=== PATIENT | female | born 1995 ===

== ENCOUNTER 2016-11-05 23:29 | Emergency (ER) | payer OTHER ==
[2016-11-05 23:55] VITALS: RESP 16; O2SAT 100
[2016-11-06] MEDS ORDERED: Sodium Chloride 0.9% 1,000 ML IV STA (00:39)
[2016-11-06 00:56] LABS: BASO # 0.1 K/uL (0.0-0.2); EOS % 0.5 % (0.0-4.0); HEMATOCRIT 33.1 % (34.0-47.0); LYMPH # 2.3 K/uL (1.0-4.3); LYMPH % 35.4 % (20.0-40.0); MEAN CELL VOLUME 85.1 fl (81.0-99.0); MEAN CORPUSCULAR HEMOGLOBIN 27.5 pg (27.0-31.0); MEAN CORPUSCULAR HGB CONC 32.3 g/dL (33.0-37.0); MEAN PLATELET VOLUME 8.7 fl (7.2-11.7); MONO # 0.7 K/uL (0.0-0.8); MONO % 10.6 % (0.0-10.0); NEUT # 3.5 K/uL (1.8-7.0); NEUT % 52.5 % (50.0-75.0); NRBC % 0.1 % (0.0-0.0); WHITE BLOOD COUNT 6.6 K/uL (4.8-10.8)
[2016-11-06 01:05] LABS: ALB/GLOB RATIO 1.4 (1.0-2.1); ALKALINE PHOSPHATASE 49 U/L (38-126); ALT/SGPT 32 U/L (9-52); AST/SGOT 31 U/L (14-36); BILIRUBIN,TOTAL 0.3 mg/dl (0.2-1.3); BLOOD UREA NITROGEN 7 mg/dl (7-17); CALCIUM 8.4 mg/dL (8.4-10.2); CARBON DIOXIDE 26 mmol/L (22-30); CHLORIDE 103 mmol/L (98-107); GFR AFRICAN-AMERICAN > 60; GLUCOSE,RANDOM 110 mg/dL (65-105); LIPASE 448 U/L (23-300); POTASSIUM 3.4 MMOL/L (3.6-5.0); SODIUM 139 mmol/l (132-148); TOTAL PROTEIN 6.9 G/DL (6.3-8.2)
[2016-11-06 01:06] LABS: RBC URINE 5 /hpf (0-3); URINE BACTERIA OCC (<OCC); URINE BILIRUBIN SMALL (NEGATIVE); URINE BLOOD SMALL (NEGATIVE); URINE COLOR AMBER (YELLOW); URINE GLUCOSE (UA) NEG (Normal); URINE KETONE TRACE mg/dL (NEGATIVE); URINE LEUKOCYTE ESTERASE NEG Leu/uL (Negative); URINE PROTEIN 100 mg/dL (NEGATIVE); URINE UROBILINOGEN 0.2-1.0 mg/dL (0.2-1.0); WBC URINE 2 /hpf (0-5)
--- NOTE | 2016-11-06 01:26 | ED PDOC ---
HPI: Abdomen Time Seen by Provider: 11/06/16 01:24 Chief Complaint (Nursing): Abdominal Pain Chief Complaint (Provider): abdominal pain History Per: Patient History/Exam Limitations: no limitations Onset/Duration Of Symptoms: Days (3) Outside of [place] travel?: No Current Symptoms Are (Timing): Still Present Context: Other (mother sick with VIRAL GI 4d prior) Location Of Pain/Discomfort: RUQ, Epigastric, LUQ Associated Symptoms: Nausea, Vomiting, Loss Of Appetite, Back Pain. denies: Fever, Chills, Chest Pain, Constipation, Urinary Symptoms Alleviating Factors: None Last Bowel Movement: Today Abnormal Vaginal Bleeding: No Past Medical History Reviewed: Historical Data, Nursing Documentation, Vital Signs Vital Signs: Last Vital Signs Temp 100.9 F H 11/06/16 01:23 Pulse 100 H 11/05/16 23:31 Resp 16 11/05/16 23:31 BP 128/80 11/05/16 23:31 Pulse Ox 100 11/06/16 01:27 - Medical History PMH: No Chronic Diseases - Family History Family History: States: No Known Family Hx - Immunization History Hx Tetanus Toxoid Vaccination: No Hx Influenza Vaccination: No Hx Pneumococcal Vaccination: No - Home Medications Home Medications: Ambulatory Orders Medication Instructions Recorded Azithromycin [Zithromax Z-Kaz] 250 mg PO DAILY #1 tab 09/08/14 Promethazine/Phenyleph/Codeine 2 tsp PO Q6 PRN #0 syr 09/08/14 [Promethazine Vc W/ Codeine 120 ml] Amoxicillin/Clavulanate [Augmentin 1 tab PO BID #14 tab 06/05/15 875 MG-125 MG] Ibuprofen 400 mg PO Q6 #20 tablet 06/05/15 Prednisone 20 mg PO DAILY #4 tablet 06/05/15 - Allergies Allergies/Adverse Reactions: Allergies Allergy/AdvReac Type Severity Reaction Status Date / Time No Known Allergies Allergy Verified 09/08/14 00:13 Review of Systems ROS Statement: Except As Marked, All Systems Reviewed And Found Negative Constitutional: Positive for: Fever Cardiovascular: Negative for: Chest Pain, Palpitations Gastrointestinal: Positive for: Nausea, Vomiting, Abdominal Pain. Negative for : Diarrhea, Constipation Physical Exam - Reviewed Nursing Documentation Reviewed: Yes Vital Signs Reviewed: Yes - Physical Exam Appears: Positive for: Non-toxic, No Acute Distress Skin: Positive for: Normal Color, Warm, DRY Cardiovascular/Chest: Positive for: Regular Rate, Rhythm Respiratory: Positive for: CNT, Normal Breath Sounds Gastrointestinal/Abdominal: Positive for: Bowel Sounds, Soft, Tenderness (RUQ and murphys sign ) Back: Positive for: Normal Inspection. Negative for: L CVA Tenderness, R CVA Tenderness Extremity: Positive for: Normal ROM Neurologic/Psych: Positive for: Alert, Oriented - Laboratory Results Result Diagrams: 11/06/16 00:54 11/06/16 00:54 - ECG O2 Sat by Pulse Oximetry: 100 - Progress ED Course And Treament: impresoisn : gallstones US , cBC/CMP/fluids, torodlo UA Medical Decision Making Medical Decision Making: PT without evidence of gallstones at this time, however does have mildly elevated lipase. pt pain improved in ED and doesn't require further ER intervention at this time. advised to have pmd f/u and return if with sever abd pain . VS stable and well appearing Disposition - Clinical Impression Clinical Impression: Abdominal pain - Patient ED Disposition Is Patient to be Admitted: No Counseled Patient/Family Regarding: Studies Performed, Diagnosis, Need For Followup - Disposition Referrals: [facility] [Outside] [facility] [Outside] Disposition: Routine/Home Disposition Time: 02:45 Condition: IMPROVED Instructions: Cholecystitis (ED), Gallstones (ED) Forms: [employer] (Sinhala), [facility] ED School/Work Excuse
--- NOTE | 2016-11-06 02:28 | US ---
EXAM: US Abdomen Limited, Right Upper Quadrant CLINICAL HISTORY: 21 years old, female; Pain; Abdominal pain; Generalized; Additional info: (+) barrios sign TECHNIQUE: Real-time ultrasound of the right upper quadrant with image documentation. COMPARISON: No relevant prior studies available. FINDINGS: Liver: Normal echogenicity. No mass. No intrahepatic bile duct dilatation. Gallbladder: No gallstones. No wall thickening. No pericholecystic fluid. No sonographic Barrios's sign. Common bile duct: No dilatation. No stones. Pancreas: Unremarkable as visualized. Right kidney: Normal echogenicity. No hydronephrosis. IMPRESSION: 1.No acute findings. 2.Non-acute findings are described above.
[2016-11-06 02:50] VITALS: BP 129/77; PULSE 92; TEMP 98.4
--- NOTE | 2016-11-07 18:18 | CARD ---
APPROVED REPORT EKG Measurement Heart [id number] <Conclusion> Normal sinus rhythm Normal ECG
== END 2016-11-06 03:05 | disposition home or self-care (01) ==
LOC: H.ER 23:29
DX: K80.20 Calculus of gallbladder without cholecystitis without obstruction (principal)
CPT/HCPCS: 76705; 80053; 81003; 81025; 83690; 85025; 93005; 96361; 96374; 96375; 99284; J2405; J7040

== ENCOUNTER 2016-11-09 20:59 | Emergency (ER) | payer OTHER ==
[2016-11-09] MEDS ORDERED: Sodium Chloride 0.9% 1,000 ML IV STA (21:54)
[2016-11-09] MEDS ORDERED: Iohexol 240 (50 ml) PO STA (21:55)
[2016-11-09] MEDS ORDERED: Morphine 4 MG/ML VIAL ONE (22:09)
[2016-11-09 22:55] LABS: BASO # 0.1 K/uL (0.0-0.2); BASO % 1.1 % (0.0-2.0); EOS % 0.4 % (0.0-4.0); HEMATOCRIT 37.3 % (34.0-47.0); LYMPH # 1.3 K/uL (1.0-4.3); LYMPH % 29.4 % (20.0-40.0); MEAN CELL VOLUME 84.6 fl (81.0-99.0); MEAN CORPUSCULAR HEMOGLOBIN 28.2 pg (27.0-31.0); MEAN CORPUSCULAR HGB CONC 33.3 g/dL (33.0-37.0); MEAN PLATELET VOLUME 9.5 fl (7.2-11.7); MONO # 0.2 K/uL (0.0-0.8); MONO % 5.2 % (0.0-10.0); NEUT # 2.9 K/uL (1.8-7.0); NEUT % 63.9 % (50.0-75.0); NRBC % 0.1 % (0.0-0.0); RED CELL DISTRIBUTION WIDTH 17.7 % (11.5-14.5); WHITE BLOOD COUNT 4.5 K/uL (4.8-10.8)
[2016-11-09 23:05] LABS: ALB/GLOB RATIO 1.4 (1.0-2.1); ALKALINE PHOSPHATASE 66 U/L (38-126); ALT/SGPT 31 U/L (9-52); AST/SGOT 52 U/L (14-36); BILIRUBIN,TOTAL 0.4 mg/dl (0.2-1.3); BLOOD UREA NITROGEN 9 mg/dl (7-17); CALCIUM 8.9 mg/dL (8.4-10.2); CARBON DIOXIDE 24 mmol/L (22-30); CHLORIDE 107 mmol/L (98-107); GFR AFRICAN-AMERICAN > 60; GLUCOSE,RANDOM 136 mg/dL (65-105); LIPASE 481 U/L (23-300); SODIUM 146 mmol/l (132-148); TOTAL PROTEIN 8.1 G/DL (6.3-8.2)
[2016-11-09] MEDS ORDERED: Iohexol 240 (50 ml) ONE (23:08)
[2016-11-09 23:12] LABS: POTASSIUM 4.5 MMOL/L (3.6-5.0)
[2016-11-09] MEDS ORDERED: Alum-Mag Hydrox-Simethicone Susp (30 mL) PO STA (23:39)
--- NOTE | 2016-11-10 01:30 | ED PDOC ---
HPI: Abdomen Time Seen by Provider: 11/09/16 21:07 Chief Complaint (Nursing): Abdominal Pain Chief Complaint (Provider): Abdominal pain, N/V/D History Per: Patient History/Exam Limitations: no limitations Onset/Duration Of Symptoms: Days Outside of [place] travel?: No Additional Complaint(s): Pt reports watery diarrhea without blood or mucous x 3 weeks. Pt states that for 2 weeks she has been having upper abdominal pain. Pt states 5 days ago she began having N/V. Pt denies fever/chills. PT was seen in ER 4 days ago and was diagnosed with gallbladder stones however she does not have follow-up appointment with GI until 11/20/16. Pt states she feels worse today. Past Medical History Reviewed: Historical Data, Nursing Documentation, Vital Signs Vital Signs: Last Vital Signs Temp 96.5 F L 11/09/16 21:02 Pulse 113 H 11/09/16 21:02 Resp 16 11/09/16 21:02 BP 118/82 11/09/16 21:02 Pulse Ox 98 11/10/16 03:48 - Medical History PMH: Gall Bladder Disease - Surgical History Surgical History: No Surg Hx - Family History Family History: States: No Known Family Hx - Social History Current smoker - smoking cessation education provided: No - Immunization History Hx Tetanus Toxoid Vaccination: No Hx Influenza Vaccination: No Hx Pneumococcal Vaccination: No - Home Medications Home Medications: Ambulatory Orders Medication Instructions Recorded Azithromycin [Zithromax Z-Kaz] 250 mg PO DAILY #1 tab 09/08/14 Promethazine/Phenyleph/Codeine 2 tsp PO Q6 PRN #0 syr 09/08/14 [Promethazine Vc W/ Codeine 120 ml] Amoxicillin/Clavulanate [Augmentin 1 tab PO BID #14 tab 06/05/15 875 MG-125 MG] Ibuprofen 400 mg PO Q6 #20 tablet 06/05/15 Prednisone 20 mg PO DAILY #4 tablet 06/05/15 oxyCODONE/Acetaminophen [Percocet 1 ea PO Q6H PRN #15 tab 11/10/16 5/325 mg Tab] - Allergies Allergies/Adverse Reactions: Allergies Allergy/AdvReac Type Severity Reaction Status Date / Time No Known Allergies Allergy Verified 09/08/14 00:13 Review of Systems ROS Statement: Except As Marked, All Systems Reviewed And Found Negative Constitutional: Negative for: Fever, Chills, Sweats Gastrointestinal: Positive for: Nausea, Vomiting, Abdominal Pain, Diarrhea. Negative for: Melena Physical Exam - Reviewed Nursing Documentation Reviewed: Yes Vital Signs Reviewed: Yes - Physical Exam Appears: Positive for: Well, Non-toxic, No Acute Distress Head Exam: Positive for: ATRAUMATIC, NORMAL INSPECTION, NORMOCEPHALIC Skin: Positive for: Normal Color, Warm, DRY Eye Exam: Positive for: Normal appearance ENT: Positive for: Normal ENT Inspection Neck: Positive for: Normal, Painless ROM Cardiovascular/Chest: Positive for: Regular Rate, Rhythm Respiratory: Positive for: Normal Breath Sounds. Negative for: Accessory Muscle Use, Respiratory Distress Gastrointestinal/Abdominal: Positive for: Bowel Sounds, Soft, Tenderness ( Epigastric and RLQ). Negative for: Normal Exam Back: Positive for: Normal Inspection Extremity: Positive for: Normal ROM Neurologic/Psych: Positive for: Alert, Oriented - Laboratory Results Result Diagrams: 11/09/16 22:40 11/09/16 22:40 - ECG O2 Sat by Pulse Oximetry: 98 Medical Decision Making Medical Decision Making: No acute findings on CT. Disposition - Clinical Impression Clinical Impression: Abdominal pain - Patient ED Disposition Is Patient to be Admitted: No Counseled Patient/Family Regarding: Diagnosis, Need For Followup - Disposition Disposition: Routine/Home Disposition Time: 03:50 Condition: GOOD Prescriptions: oxyCODONE/Acetaminophen [Percocet 5/325 mg Tab] 1 ea PO Q6H PRN #15 tab PRN Reason: Pain, Severe (8-10) Instructions: Abdominal Pain (ED)
--- NOTE | 2016-11-10 02:02 | CT ---
EXAM: CT Abdomen and Pelvis With Intravenous Contrast CLINICAL HISTORY: 21 years old, female; Pain; Abdominal pain; Generalized; Additional info: Abdominal pain, diarrhea x 3 days TECHNIQUE: Axial computed tomography images of the abdomen and pelvis with intravenous contrast. This CT exam was performed using one or more of the following dose reduction techniques: automated exposure control, adjustment of the mA and/or kV according to patient size, and/or use of iterative reconstruction technique. Coronal and sagittal reformatted images were created and reviewed. CONTRAST: 95 mL of omni 300 administered intravenously. COMPARISON: US - ABDOMEN LIMITED (GB INCLUDED) 11/06/2016 2:05:04 AM FINDINGS: Lower thorax: Minimal atelectasis/scarring. ABDOMEN: Liver: Unremarkable. No mass. Gallbladder and bile ducts: No calcified stones. No ductal dilation. Pancreas: No ductal dilation. No mass. Spleen: No splenomegaly. Adrenals: No mass. Kidneys and ureters: No mass. No hydronephrosis. Stomach and bowel: Mild mural thickening vs underdistention of transverse, descending, sigmoid colon. No associated inflammatory stranding. No obstruction. Appendix: Normal caliber. No inflammation. PELVIS: Bladder: Unremarkable. Reproductive: 2.3 x 1.6 x 2.4 cm faint peripherally enhancing hypodensity with crenulated margins within RIGHT ovary. ABDOMEN and PELVIS: Intraperitoneal space: Trace free fluid within pelvis. No free air. Bones/joints: No acute fracture. Soft tissues: Unremarkable. Vasculature: Unremarkable. No aneurysm. Lymph nodes: No pathologically enlarged lymph nodes. IMPRESSION: 1. Probable involuting or ruptured RIGHT ovarian follicle/cyst. 2. Mild colitis vs underdistention. Favor underdistention. Clinical correlation is needed. 3. Incidental/non-acute findings are described above.
[2016-11-10 04:00] VITALS: BP 123/63; PULSE 102; RESP 17; TEMP 98.1; O2SAT 99
== END 2016-11-10 04:41 | disposition home or self-care (01) ==
LOC: H.ER 20:59
DX: R11.2 Nausea with vomiting, unspecified (principal); R19.7 Diarrhea, unspecified
CPT/HCPCS: 74177; 80053; 81025; 83690; 85025; 99283; J2270; J2405; J7040; Q9966

== ENCOUNTER 2016-11-14 00:49 | Emergency (ER) | payer OTHER ==
[2016-11-14 01:09] VITALS: BP 134/89; PULSE 106; RESP 19; TEMP 98.9; O2SAT 99
[2016-11-14] MEDS ORDERED: Sodium Chloride 0.9% 1,000 ML IV STA (01:55)
[2016-11-14 02:18] LABS: BASO % 0.8 % (0.0-2.0); EOS % 0.5 % (0.0-4.0); HEMATOCRIT 37.5 % (34.0-47.0); LYMPH # 2.6 K/uL (1.0-4.3); MEAN CELL VOLUME 85.4 fl (81.0-99.0); MEAN CORPUSCULAR HEMOGLOBIN 27.8 pg (27.0-31.0); MEAN CORPUSCULAR HGB CONC 32.5 g/dL (33.0-37.0); MEAN PLATELET VOLUME 8.5 fl (7.2-11.7); MONO # 0.5 K/uL (0.0-0.8); MONO % 9.5 % (0.0-10.0); NEUT # 2.3 K/uL (1.8-7.0); NEUT % 42.2 % (50.0-75.0); NRBC % 0.1 % (0.0-0.0); RED CELL DISTRIBUTION WIDTH 17.4 % (11.5-14.5); WHITE BLOOD COUNT 5.5 K/uL (4.8-10.8)
[2016-11-14 02:34] LABS: ALB/GLOB RATIO 1.5 (1.0-2.1); ALKALINE PHOSPHATASE 69 U/L (38-126); ALT/SGPT 38 U/L (9-52); AST/SGOT 43 U/L (14-36); BILIRUBIN,TOTAL 0.3 mg/dl (0.2-1.3); BLOOD UREA NITROGEN 8 mg/dl (7-17); CALCIUM 9.5 mg/dL (8.4-10.2); CARBON DIOXIDE 24 mmol/L (22-30); CHLORIDE 106 mmol/L (98-107); GFR AFRICAN-AMERICAN > 60; GLUCOSE,RANDOM 122 mg/dL (65-105); LIPASE 644 U/L (23-300); POTASSIUM 4.3 MMOL/L (3.6-5.0); SODIUM 144 mmol/l (132-148)
--- NOTE | 2016-11-14 03:02 | ED PDOC ---
HPI: Abdomen Time Seen by Provider: 11/14/16 01:15 Chief Complaint (Nursing): Abdominal Pain Chief Complaint (Provider): abdominal pain History Per: Patient History/Exam Limitations: no limitations Onset/Duration Of Symptoms: Days (10 days) Current Symptoms Are (Timing): Still Present Location Of Pain/Discomfort: RUQ, Epigastric, LUQ Quality Of Discomfort: Sharp Associated Symptoms: Nausea, Vomiting, Diarrhea Additional History Per: Patient Additional Complaint(s): 21 y/o female presents for eval of persistent upper abdominal pain x 10 days. Associated vomiting, and nonbloody, nonmucoid diarrhea. Patient states she was seen in ED in 11/05, and 11/09 for same without improvement. Patient has appt to see digital media planner 10/20/16. Denies fever, chest pain, shortness of breath, palpitations, dysuria, hematuria, recent travel, sick contacts. Past Medical History Reviewed: Historical Data, Nursing Documentation, Vital Signs Vital Signs: Last Vital Signs Temp 98.9 F 11/14/16 01:06 Pulse 106 H 11/14/16 01:06 Resp 19 11/14/16 01:06 BP 134/89 11/14/16 01:06 Pulse Ox 99 11/14/16 03:39 - Medical History PMH: No Chronic Diseases - Surgical History Surgical History: No Surg Hx - Family History Family History: States: Unknown Family Hx - Living Arrangements Living Arrangements: With Family - Immunization History Hx Tetanus Toxoid Vaccination: No Hx Influenza Vaccination: No Hx Pneumococcal Vaccination: No - Home Medications Home Medications: Ambulatory Orders Medication Instructions Recorded Azithromycin [Zithromax Z-Kaz] 250 mg PO DAILY #1 tab 09/08/14 Promethazine/Phenyleph/Codeine 2 tsp PO Q6 PRN #0 syr 09/08/14 [Promethazine Vc W/ Codeine 120 ml] Amoxicillin/Clavulanate [Augmentin 1 tab PO BID #14 tab 06/05/15 875 MG-125 MG] Ibuprofen 400 mg PO Q6 #20 tablet 06/05/15 Prednisone 20 mg PO DAILY #4 tablet 06/05/15 oxyCODONE/Acetaminophen [Percocet 1 ea PO Q6H PRN #15 tab 11/10/16 5/325 mg Tab] Dicyclomine [Bentyl] 20 mg PO TID PRN #21 tab 11/14/16 Famotidine [Pepcid] 20 mg PO BID #30 tab 11/14/16 Ondansetron ODT [Zofran ODT] 4 mg PO Q8 PRN #10 odt 11/14/16 - Allergies Allergies/Adverse Reactions: Allergies Allergy/AdvReac Type Severity Reaction Status Date / Time No Known Allergies Allergy Verified 11/14/16 01:06 Review of Systems ROS Statement: Except As Marked, All Systems Reviewed And Found Negative Gastrointestinal: Positive for: Nausea, Vomiting, Abdominal Pain, Diarrhea Physical Exam - Reviewed Nursing Documentation Reviewed: Yes Vital Signs Reviewed: Yes - Physical Exam Appears: Positive for: Well, Non-toxic, No Acute Distress Head Exam: Positive for: ATRAUMATIC, NORMAL INSPECTION, NORMOCEPHALIC Skin: Positive for: Normal Color Eye Exam: Positive for: Normal appearance ENT: Positive for: Normal ENT Inspection Cardiovascular/Chest: Positive for: Regular Rate, Rhythm Respiratory: Positive for: Normal Breath Sounds Gastrointestinal/Abdominal: Positive for: Bowel Sounds, Soft, Tenderness ( epigastric, ruq (mild), luq (mild). Negative Barrios's. Negative McBurney) Back: Positive for: Normal Inspection Extremity: Positive for: Normal ROM Neurologic/Psych: Positive for: Alert, Oriented - Laboratory Results Result Diagrams: 11/14/16 02:00 11/14/16 02:00 - ECG O2 Sat by Pulse Oximetry: 99 - Progress ED Course And Treament: labs, IV fluids, IV pepcid, IV zofran, IV toradol On re-eval, patient states she is feeling better. Tolerated PO in ED. Patient educated on findings, offered admission for intractable abdominal pain, elevated lipase; patient states she would like to go home with new prescriptions and follow up at her scheduled GI appointment next week. Rx Pepcid, Zofran, Bentyl provided. Advised BRAT diet. FLuids. Return to ED for worsening/concerning symptoms. Disposition - Clinical Impression Clinical Impression: Abdominal pain, Elevated lipase, Vomiting and diarrhea - Patient ED Disposition Is Patient to be Admitted: No Counseled Patient/Family Regarding: Studies Performed, Diagnosis, Need For Followup, Rx Given - Disposition Disposition: Routine/Home Disposition Time: 03:51 Condition: IMPROVED Additional Instructions: Follow up with specialist at scheduled appointment. Take medications as directed. Drink plenty of fluids. BRAT diet. Take probiotics. Return to ED for worsening/concerning symptoms. Prescriptions: Dicyclomine [Bentyl] 20 mg PO TID PRN #21 tab PRN Reason: Pain, Mild (1-3) Famotidine [Pepcid] 20 mg PO BID #30 tab Ondansetron ODT [Zofran ODT] 4 mg PO Q8 PRN #10 odt PRN Reason: Nausea/Vomiting Instructions: Abdominal Pain (ED)
== END 2016-11-14 04:09 | disposition home or self-care (01) ==
LOC: H.ER 00:49
DX: R10.12 Left upper quadrant pain (principal); R74.8 Abnormal levels of other serum enzymes
CPT/HCPCS: 80053; 83690; 85025; 96374; 99283; J1885; J2405; J7040

== ENCOUNTER 2017-05-17 21:14 | Emergency (ER) | payer MEDICAID, SELFPAY ==
[2017-05-17 21:31] VITALS: BMI 27.4
[2017-05-17 21:34] VITALS: BP 129/90; PULSE 121; RESP 16; TEMP 98.4; O2SAT 97
[2017-05-18] MEDS ORDERED: guaiFENesin 200 mg/10 ml Syrup UD PO ONE (02:33)
[2017-05-18] MEDS ORDERED: guaiFENesin 100 mg/5 ml Syrup UD ONE (02:49)
--- NOTE | 2017-05-18 05:47 | ED PDOC ---
HPI: CCC, URI, Sore Throat Time Seen by Provider: 05/18/17 01:32 Chief Complaint (Nursing): ENT Problem Chief Complaint (Provider): ENT Problem History Per: Patient History/Exam Limitations: no limitations Additional Complaint(s): Patient reports sore throat and dry cough. Also reports wrist pain to dorsal aspect of her wrist x 4 days. Notes that sibling had similar symptoms. Otherwise : (-) SOB, (-) chest pain, (-) N/V/D, (-) abdominal pain, (-) flank pain, (-) urinary symptoms, (-) recent travel, (-) fever. Past Medical History Reviewed: Historical Data, Nursing Documentation, Vital Signs Vital Signs: Last Vital Signs Temp 98.4 F 05/17/17 21:32 Pulse 121 H 05/17/17 21:32 Resp 16 05/17/17 21:32 BP 129/90 05/17/17 21:32 Pulse Ox 97 05/18/17 05:54 - Medical History PMH: No Chronic Diseases - Surgical History Surgical History: No Surg Hx - Family History Family History: States: Unknown Family Hx - Social History Current smoker - smoking cessation education provided: No Alcohol: None Drugs: Denies - Immunization History Hx Tetanus Toxoid Vaccination: No Hx Influenza Vaccination: No Hx Pneumococcal Vaccination: No - Home Medications Home Medications: Ambulatory Orders Medication Instructions Recorded Azithromycin [Zithromax Z-Kaz] 250 mg PO DAILY #1 tab 09/08/14 Promethazine/Phenyleph/Codeine 2 tsp PO Q6 PRN #0 syr 09/08/14 [Promethazine Vc W/ Codeine 120 ml] Amoxicillin/Clavulanate [Augmentin 1 tab PO BID #14 tab 06/05/15 875 MG-125 MG] Ibuprofen 400 mg PO Q6 #20 tablet 06/05/15 Prednisone 20 mg PO DAILY #4 tablet 06/05/15 oxyCODONE/Acetaminophen [Percocet 1 ea PO Q6H PRN #15 tab 11/10/16 5/325 mg Tab] Dicyclomine [Bentyl] 20 mg PO TID PRN #21 tab 11/14/16 Famotidine [Pepcid] 20 mg PO BID #30 tab 11/14/16 Ondansetron ODT [Zofran ODT] 4 mg PO Q8 PRN #10 odt 11/14/16 Guaifenesin 400 mg PO QID #20 tablet 05/18/17 Ibuprofen [Motrin Tab] 600 mg PO QID PRN #20 tab 05/18/17 - Allergies Allergies/Adverse Reactions: Allergies Allergy/AdvReac Type Severity Reaction Status Date / Time No Known Allergies Allergy Verified 05/17/17 21:31 Review of Systems ROS Statement: Except As Marked, All Systems Reviewed And Found Negative (As per HPI, otherwise negative) Constitutional: Negative for: Fever ENT: Positive for: Throat Swelling (sore throat) Cardiovascular: Negative for: Chest Pain Respiratory: Positive for: Cough (Dry cough). Negative for: Shortness of Breath , Hemoptysis Gastrointestinal: Negative for: Nausea, Vomiting, Diarrhea, Melena, Hematochezia Musculoskeletal: Positive for: Other (wrist pain to dorsal aspect of her wrist ) Physical Exam - Reviewed Nursing Documentation Reviewed: Yes Vital Signs Reviewed: Yes - Physical Exam Comments: GENERAL APPEARANCE: Patient is awake, alert, oriented x 3, in no acute distress. SKIN: Warm, dry; (-) cyanosis, (-) rash. EYES: (-) conjunctival pallor, (-) scleral icterus, (-) conjunctival hemorrhage. ENMT: Mucous membranes moist. TMs: (-) erythema. Airway patent: (-) stridor. Pharynx: (-) erythema, (-) exudate. NECK: (-) tenderness, (-) stiffness, (-) meningismus, (-) lymphadenopathy. CHEST AND RESPIRATORY: (-) accessory muscle use. Lungs: (-) rales, (-) rhonchi, (-) wheezes, (-) rub; breath sounds equal bilaterally. HEART AND CARDIOVASCULAR: (-) irregularity; (-) murmur, (-) gallop, (-) rub. ABDOMEN AND GI: Soft; (-) tenderness, (-) guarding; (-) organomegaly; (-) mass ; (-) CVA tenderness. EXTREMITIES: (-) deformity; (-) cellulitis, (-) lymphangitis; (-) subungual hemorrhage; (-) edema, (-) tenderness, (-) swelling, (+) pain reproducible to the dorsal aspect of right wrist with flexion. NEURO AND PSYCH: Mental status as above; (-) focal findings. - ECG O2 Sat by Pulse Oximetry: 97 (RA) Pulse Ox Interpretation: Normal Medical Decision Making Medical Decision Making: Time: 02:34 Plan: Robitussin 400mg PO Ibuprofen 600mg PO --Diagnosed with viral illness, wrist pain possibly due to carpel tunnel d/w the patient --Premade cock up splint applied to the R wrist. Time: 03:00 Advised to follow up with primary care physician in 1-2 days without fail. Advised to take medication as prescribed. Return to the emergency room at any time for any new or worsening symptoms. Patient states she fully agrees with and understands discharge instructions. States that she agrees with the plan and disposition. Verbalized and repeated discharge instructions and plan. I have given the patient opportunity to ask any additional questions. Scribe Attestation: Documented by Melissa Michel acting as a scribe for ANGELY Luciano PA-C. Scribe Attestation: All medical record entries made by the Scribe were at my direction and personally dictated by me. I have reviewed the chart and agree that the record accurately reflects my personal performance of the history, physical exam, medical decision making, and the department course for this patient. I have also personally directed, reviewed, and agree with the discharge instructions and disposition. Disposition - Clinical Impression Clinical Impression: Viral illness, Right wrist pain - Patient ED Disposition Is Patient to be Admitted: No Counseled Patient/Family Regarding: Diagnosis, Need For Followup, Rx Given - Disposition Disposition: Routine/Home Disposition Time: 02:15 Condition: STABLE Additional Instructions: Thank you for letting us take care of you today. You were treated for viral illness, R wrist pain, consider carpal tunnel syndrome. The emergency medical care you received today was directed at your acute symptoms. Rest, ice and elevate wrist, wear splint as advised. If you were prescribed any medication, please fill it and take as directed. It may take several days for your symptoms to resolve. Return to the Emergency Department if your symptoms worsen, do not improve, or if you have any other problems. Please contact your doctor in 2 days for re-evaluation and follow up. Bring any paperwork you were given at discharge with you along with any medications you are taking to your follow up visit. Our treatment cannot replace ongoing medical care by a primary care provider (PCP) outside of the emergency department. Thank you for allowing the [facility] team to be part of your care today. 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
== END 2017-05-18 02:56 | disposition home or self-care (01) ==
LOC: H.ER 21:14
DX: B34.9 Viral infection, unspecified (principal); M25.531 Pain in right wrist

== ENCOUNTER 2017-06-16 12:27 | Emergency (ER) | payer MEDICAID, SELFPAY ==
[2017-06-16 12:27] VITALS: BMI 27.4
[2017-06-16 12:44] VITALS: BP 127/83; PULSE 88; RESP 16; TEMP 98; O2SAT 99
--- NOTE | 2017-06-16 13:47 | ED PDOC ---
Lower Extremity Pain/Injury Time Seen by Provider: 06/16/17 13:07 Chief Complaint (Nursing): Lower Extremity Problem/Injury Chief Complaint (Provider): Lower Extremity Problem History Per: Patient History/Exam Limitations: no limitations Onset/Duration Of Symptoms: Days (x3) Current Symptoms Are (Timing): Still Present Additional Complaint(s): 21 year old female presents to ED with complaints of atraumatic right foot pain x3 days and denies having any past medical history. Patient describes the pain as "feeling like a metal ball was dropped on the foot". Notes pain with bearing weight on right foot. Localizes pain to the dorsal, lateral, and plantar aspects of foot as well as to the toes. Notes that she has experienced this pain before but confirms it is worse now. Of note, patient states she used to play sports and saw a finance specialist for swollen tendons but never followed up. PCP: Melina Bustamante Past Medical History Reviewed: Historical Data, Nursing Documentation, Vital Signs Vital Signs: Last Vital Signs Temp 98.0 F 06/16/17 12:40 Pulse 88 06/16/17 12:40 Resp 16 06/16/17 12:40 BP 127/83 06/16/17 12:40 Pulse Ox 99 06/16/17 12:40 - Medical History PMH: No Chronic Diseases Denies: Diabetes - Family History Family History: States: Unknown Family Hx - Social History Alcohol: None Drugs: Denies - Immunization History Hx Tetanus Toxoid Vaccination: No Hx Influenza Vaccination: No Hx Pneumococcal Vaccination: No - Home Medications Home Medications: Ambulatory Orders Medication Instructions Recorded Azithromycin [Zithromax Z-Kaz] 250 mg PO DAILY #1 tab 09/08/14 Promethazine/Phenyleph/Codeine 2 tsp PO Q6 PRN #0 syr 09/08/14 [Promethazine Vc W/ Codeine 120 ml] Amoxicillin/Clavulanate [Augmentin 1 tab PO BID #14 tab 06/05/15 875 MG-125 MG] Ibuprofen 400 mg PO Q6 #20 tablet 06/05/15 Prednisone 20 mg PO DAILY #4 tablet 06/05/15 oxyCODONE/Acetaminophen [Percocet 1 ea PO Q6H PRN #15 tab 11/10/16 5/325 mg Tab] Dicyclomine [Bentyl] 20 mg PO TID PRN #21 tab 11/14/16 Famotidine [Pepcid] 20 mg PO BID #30 tab 11/14/16 Ondansetron ODT [Zofran ODT] 4 mg PO Q8 PRN #10 odt 11/14/16 Guaifenesin 400 mg PO QID #20 tablet 05/18/17 Ibuprofen [Motrin Tab] 600 mg PO QID PRN #20 tab 05/18/17 - Allergies Allergies/Adverse Reactions: Allergies Allergy/AdvReac Type Severity Reaction Status Date / Time No Known Allergies Allergy Verified 06/16/17 12:40 Review of Systems ROS Statement: Except As Marked, All Systems Reviewed And Found Negative Musculoskeletal: Positive for: Foot Pain (right foot pain) Physical Exam - Reviewed Nursing Documentation Reviewed: Yes Vital Signs Reviewed: Yes - Physical Exam Appears: Positive for: Non-toxic, No Acute Distress Extremity: Positive for: Normal ROM (Full ROM both actively and passively), Tenderness (navicular and medial calcaneal tenderness), Capillary Refill (<2 seconds), Other (right foot strenght 5/5). Negative for: Deformity Neurologic/Psych: Positive for: Alert, Oriented. Negative for: Motor/Sensory Deficits - ECG O2 Sat by Pulse Oximetry: 99 (RA) Pulse Ox Interpretation: Normal Medical Decision Making Medical Decision Makin Initial impression: r/o stress frature Initial plan: * XR FOOT RT 1410 XR: no fracture, no dislocation, no acute findings Scribe Attestation: Documented by Belem Villarreal, acting as a scribe for Oneal hCapman PA-C. Provider Scribe Attestation: All medical record entries made by the Scribe were at my direction and personally dictated by me. I have reviewed the chart and agree that the record accurately reflects my personal performance of the history, physical exam, medical decision making, and the department course for this patient. I have also personally directed, reviewed, and agree with the discharge instructions and disposition. Disposition - Clinical Impression Clinical Impression: Plantar fascia syndrome - Disposition Referrals: Reese Santiago MD [Staff Provider] - Disposition Time: 14:33 Condition: GOOD Additional Instructions: consider more supportive footwear Instructions: Heel Pain (Caused by Plantar Fasciitis) (DC), Plantar Fasciitis Exercises Forms: [employer] (Belizean)
--- NOTE | 2017-06-16 15:36 | RAD ---
PROCEDURE: Right Foot Radiographs. HISTORY: non traumatic pain COMPARISON: None. FINDINGS: BONES: Normal. No fracture. JOINTS: Normal. SOFT TISSUES: Normal. OTHER FINDINGS: None. IMPRESSION: Normal right foot radiographs.
== END 2017-06-16 14:39 | disposition home or self-care (01) ==
LOC: H.ER 12:27
DX: M72.2 Plantar fascial fibromatosis (principal)

== ENCOUNTER 2017-09-04 22:00 | Emergency (ER) | payer MEDICAID ==
[2017-09-04 22:00] VITALS: BMI 27.4
[2017-09-04] MEDS ORDERED: Albuterol-Ipratrop 3 mg / 0.5 (3 ml) UD IH STA (23:02)
[2017-09-04] MEDS ORDERED: guaiFENesin 100 mg/5 ml Syrup UD PO ONE (23:02)
--- NOTE | 2017-09-04 23:14 | ED PDOC ---
History of Present Illness History of Present Illness: 21 yo F with no PMH, complains of productive cough, sore throat, congestion and associated with chest pain and upper back pain with coughing. Otherwise: (-) fever, (-) chills, (-) chest pain, (-) dyspnea, (-) hemoptysis, (-) smoke, (-) travel, (-) recent prolonged immobility. HPI: Influenza Time Seen by Provider: 09/04/17 22:26 Chief Complaint: Cough, Cold, Congestion History Per: Patient Exam Limitations: no limitations Past Medical History Vital Signs: Last Vital Signs Temp 98.3 F 09/04/17 22:09 Pulse 104 H 09/04/17 22:09 Resp 16 09/04/17 22:09 BP 139/94 H 09/04/17 22:09 Pulse Ox 99 09/04/17 22:09 - Medical History PMH: Denies: Diabetes - Family History Family History: States: Unknown Family Hx - Immunization History Hx Tetanus Toxoid Vaccination: No Hx Influenza Vaccination: No Hx Pneumococcal Vaccination: No - Home Medications Home Medications: Ambulatory Orders Medication Instructions Recorded Azithromycin [Zithromax Z-Kaz] 250 mg PO DAILY #1 tab 09/08/14 Promethazine/Phenyleph/Codeine 2 tsp PO Q6 PRN #0 syr 09/08/14 [Promethazine Vc W/ Codeine 120 ml] Amoxicillin/Clavulanate [Augmentin 1 tab PO BID #14 tab 06/05/15 875 MG-125 MG] Ibuprofen 400 mg PO Q6 #20 tablet 06/05/15 Prednisone 20 mg PO DAILY #4 tablet 06/05/15 oxyCODONE/Acetaminophen [Percocet 1 ea PO Q6H PRN #15 tab 11/10/16 5/325 mg Tab] Dicyclomine [Bentyl] 20 mg PO TID PRN #21 tab 11/14/16 Famotidine [Pepcid] 20 mg PO BID #30 tab 11/14/16 Ondansetron ODT [Zofran ODT] 4 mg PO Q8 PRN #10 odt 11/14/16 Guaifenesin 400 mg PO QID #20 tablet 05/18/17 Ibuprofen [Motrin Tab] 600 mg PO QID PRN #20 tab 05/18/17 Albuterol 0.083% [Albuterol 3 ml IH Q4 #100 neb 09/04/17 Sulfate 3 Ml] Guaifenesin [Adult Tussin Chest 200 mg PO Q6H PRN #200 ml 09/04/17 Congestion] Nebulizer [Aeroeclipse II] 1 each MC DAILY #1 each 09/04/17 - Allergies Allergies/Adverse Reactions: Allergies Allergy/AdvReac Type Severity Reaction Status Date / Time No Known Allergies Allergy Verified 09/04/17 22:09 Review of Systems Constitutional: Negative for: Fever, Malaise ENT: Negative for: Nose Discharge, Throat Pain Cardiovascular: Positive for: Chest Pain (with coughing) Respiratory: Positive for: Cough. Negative for: Shortness of Breath, Wheezing Gastrointestinal: Negative for: Vomiting, Diarrhea Musculoskeletal: Positive for: Back Pain (with coughing). Negative for: Neck Pain Skin: Negative for: Rash, Lesions Physical Exam - Physical Exam Comments: GENERAL APPEARANCE: Patient is awake, alert, oriented x 3, in no acute distress. SKIN: Warm, dry; (-) cyanosis. EYES: (-) conjunctival pallor. ENMT: Mucous membranes moist. Airway patent: (-) stridor. Pharynx: (-) swelling, (-) erythema, (-) exudate. NECK: (-) tenderness, (-) stiffness, (-) lymphadenopathy. CHEST AND RESPIRATORY: (+) rhonchi to the RUL, (-) rales, (-) wheezes, (-) pleural rub; breath sounds equal bilaterally. HEART AND CARDIOVASCULAR: (-) irregularity; (-) murmur, (-) gallop. ABDOMEN AND GI: Soft; (-) tenderness. EXTREMITIES: (-) deformity; (-) edema. NEURO AND PSYCH: Mental status as above. Cranial nerves grossly intact; strength symmetric. Medical Decision Making Medical Decision Making: Impression : bronchitis, r/o pneumonia Plan : - CXR - [facility] - [facility] (-) CXR : NAD, as read by PA. On re-evaluation, patient feels much improved. On exam, lungs are clear to auscultation, (-) wheezing, (-) rhonchi, cardiac RRR. Advised to follow up with primary care physician in 1-2 days without fail. Advised to take medication as prescribed. Return to the emergency room at any time for any new or worsening symptoms. Patient states she fully agrees with and understands discharge instructions. States that she agrees with the plan and disposition. Verbalized and repeated discharge instructions and plan. I have given the patient opportunity to ask any additional questions. - ECG O2 Sat by Pulse Oximetry: 99 Disposition - Clinical Impression Clinical Impression: Acute bronchitis - Patient ED Disposition Is Patient to be Admitted: No Counseled Patient/Family Regarding: Studies Performed, Diagnosis, Need For Followup, Rx Given - Disposition Disposition: Routine/Home Disposition Time: 00:00 Condition: STABLE Additional Instructions: Thank you for letting us take care of you today. You were treated for acute bronchitis. The emergency medical care you received today was directed at your acute symptoms. If you were prescribed any medication, please fill it and take as directed. It may take several days for your symptoms to resolve. Return to the Emergency Department if your symptoms worsen, do not improve, or if you have any other problems. Please contact your doctor in 2 days for re-evaluation and follow up. Bring any paperwork you were given at discharge with you along with any medications you are taking to your follow up visit. Our treatment cannot replace ongoing medical care by a primary care provider (PCP) outside of the emergency department. Thank you for allowing the [facility] team to be part of your care today. If you had an X-Ray : A Radiologist will review the ED reading if any change in treatment is needed we will contact you. Prescriptions: Albuterol 0.083% [Albuterol Sulfate 3 Ml] 3 ml IH Q4 #100 neb Guaifenesin [Adult Tussin Chest Congestion] 200 mg PO Q6H PRN #200 ml PRN Reason: Cough Nebulizer [Aeroeclipse II] 1 each MC DAILY #1 each Instructions: Acute Bronchitis Forms: [employer] (Guamanian)
[2017-09-04] MEDS ORDERED: Albuterol-Ipratrop 3 mg / 0.5 (3 ml) UD ONE (23:28)
[2017-09-05 00:12] VITALS: BP 120/78; PULSE 78; RESP 18; TEMP 98; O2SAT 100
--- NOTE | 2017-09-05 07:57 | RAD ---
HISTORY: cough COMPARISON: Chest radiographs 09/08/2014. TECHNIQUE: Chest PA and lateral FINDINGS: LUNGS: No active pulmonary disease. PLEURA: No significant pleural effusion identified. No pneumothorax apparent. CARDIOVASCULAR: Normal. OSSEOUS STRUCTURES: No significant abnormalities. VISUALIZED UPPER ABDOMEN: Normal. OTHER FINDINGS: None. IMPRESSION: No interval acute cardiopulmonary disease appreciated.
== END 2017-09-05 00:12 | disposition home or self-care (01) ==
LOC: H.ER 22:00
DX: J20.9 Acute bronchitis, unspecified (principal)

== ENCOUNTER 2018-08-20 09:22 | Observation (INO) | payer MEDICAID ==
[2018-08-20 09:33] VITALS: BMI 26.4
--- NOTE | 2018-08-20 10:09 | ED PDOC ---
HPI: Chest Pain Time Seen by Provider: 08/20/18 09:56 Chief Complaint (Nursing): Chest Pain Chief Complaint (Provider): Right sided upper back pain and right sided chest pain History Per: Patient History/Exam Limitations: no limitations Onset/Duration Of Symptoms: Days (7 days), Intermittent Episodes Current Symptoms Are (Timing): Still Present Pain Scale Rating Of: 10 Quality: Sharp Associated Symptoms: Other (1 episode of NBNB vomitus this morning ). denies: Nausea Modifying Factors: None Exacerbating Factors: None Alleviating Factors: Other (1 Motrin 200mg tablet provided mild relief) Additional Complaint(s): 22 yo female with no pertinent medical history presented to the E.D because of right upper back pain that radiates to the right upper chest and upper abdomen. Pain began 1 week ago and patient denies any lifting of heavy objects or trauma to the right shoulder. Description of pain is sharp, intermittent, 10/10. No aggravating factors, tried one Motrin 200mg pill with mild relief of pain. Pain associated with 1 episode of NBNB vomitus this morning and decreased appetite for 1 week duration. Reports constipation of 2 days. States she traveled 07/25/2018 to [facility]. Denies left sided chest pain, dyspnea on exertion, calf pain, diarrhea, dysuria, frequency, urgency, pain associated with food intake, cough or recent illness, and sick contacts. PMD: Dr. Ellsworth - Risk Factors PE Risk Factors: Neg: Extremity Immobilization/Fx, Decreased Mobilty /Activity, Recent Major Surgery, Recent Hospitalization, Active Cancer, Previous DVT, Previous PE, CHF, Venous Stasis, Estrogen Usage, , Post-, Recent Major Trauma TAD Risk Factors: Neg: Hypertension Past Medical History Reviewed: Historical Data, Nursing Documentation, Vital Signs Vital Signs: Last Vital Signs Temp 97.7 F 08/20/18 09:31 Pulse 89 08/20/18 09:31 Resp 18 08/20/18 09:31 BP 133/82 08/20/18 09:31 Pulse Ox 100 08/20/18 09:31 Primary Care Provider: Melina Bustamante - Medical History PMH: No Chronic Diseases, Bronchitis - Family History Family History: States: Unknown Family Hx - Home Medications Home Medications: Ambulatory Orders Medication Instructions Recorded Cyclobenzaprine [Flexeril] 5 mg PO HS 5 Days #5 tab 08/20/18 Famotidine [Pepcid] 40 mg PO DAILY 5 Days #5 tab 08/20/18 Ibuprofen [Motrin] 600 mg PO Q6H 5 Days #20 tab 08/20/18 - Allergies Allergies/Adverse Reactions: Allergies Allergy/AdvReac Type Severity Reaction Status Date / Time No Known Allergies Allergy Verified 08/20/18 09:44 MARBIN Risk Score for UA/NSTEMI - MARBIN Risk Score Age > 64: NO 3 or more CAD Risk Factors: NO Known CAD (Stenosis greater than 50%): NO Aspirin use in past 7 days: NO Severe Angina: NO EKG ST changes greater than 0.5mm: NO Positive Cardiac Marker: NO MARBIN Score: 0 Risk %: 5% Wells Criteria for PE - Wells Criteria for Pulmonary Embolism Clinical Signs and Symptoms of DVT: No P.E is #1 Diagnosis, or Equally Likely: No Heart Rate >100: Yes Immobilization at least 3 days;Surgery previous 4 weeks: No Previous, objectively diagnosed PE or DVT: No Hemoptysis: No Malignancy w/treatment within 6 months, or palliative: No Total Score: 1.5 Review of Systems Constitutional: Negative for: Fever, Chills Cardiovascular: Positive for: Chest Pain (right sided chest pain). Negative for: Palpitations, Edema Respiratory: Positive for: Shortness of Breath (shortness of breath with the pain). Negative for: Cough Gastrointestinal: Positive for: Vomiting (1 episode of NBNB vomitus ), Abdominal Pain (RUQ > LUQ pain). Negative for: Nausea, Diarrhea Genitourinary Female: Negative for: Dysuria, Frequency, Vaginal Discharge Skin: Negative for: Rash Neurological: Negative for: Weakness, Numbness Physical Exam - Physical Exam Appears: Positive for: Uncomfortable Skin: Positive for: Normal Color, Warm, Dry Eye Exam: Positive for: Normal appearance ENT: Positive for: Normal ENT Inspection Cardiovascular/Chest: Positive for: Regular Rate, Rhythm (S1 and S2 appreciated on exam) Respiratory: Positive for: Normal Breath Sounds. Negative for: Decreased Breath Sounds, Accessory Muscle Use, Crackles, Rales, Rhonchi, Stridor, Wheezing Gastrointestinal/Abdominal: Positive for: Bowel Sounds, Soft, Tenderness (RUQ tenderness and LUQ tenderness), Rebound (RUQ rebound present (Barrios's)). Negative for: Mass, Distended, Guarding Back: Positive for: Normal Inspection. Negative for: L CVA Tenderness, R CVA Tenderness Rectal: Positive for: Normal Exam, Rectal Tone Is: (normal), Other (No stool noted in vault.). Negative for: Black Stool, Blood Streaked Stool, Hemorrhoids, Mass, Tenderness Extremity: Positive for: Normal ROM, Capillary Refill (<2 s capillary refill). Negative for: Tenderness, Pedal Edema, Calf Tenderness, Swelling Neurological/Psych: Positive for: Awake, Alert - Laboratory Results Result Diagrams: 08/20/18 14:29 08/20/18 11:07 - ECG O2 Sat by Pulse Oximetry: 100 - Progress ED Course And Treament: 22 yo female with no pertinent medical history presents to ED with Right upper back pain that radiates to the right upper chest and upper abdomen. Differentials: Muscle strain vs. Cholecystitis Plan: -- RUQ u/s -- IVF -- Motrin for pain -- CBC -- CMP -- urine dip -- Urine Re-examined @ 1115 - Upreg negative - EKG: NSR (interpreted by me) - Pending CBC and CMP Re-examined @ 1322 - Hgb: 9.1 - patient admits to heavy periods but denies any melena or h ematochezia - Tachycardic - Stool occult sent at this time - repeat CBC @ 2pm - IVF- 1 L bolus - CT angio PE protocol ordered at this time given new tachycardia and right sided chest pain. Re-examined @ 1450 - Patient reports minor back pain and chest pain. - CBC: H/H drop from 9.1/30.4 to 7.8/26.2 - Patient to be admitted given acute anemia and tachycardia for observation on telemetry. Spoke to Dr. Michel, PGY [address] Lazo's service @ 4142 - Dr. Lazo will accept admission for observation on telemetry D/W Dr. Petit Disposition - Clinical Impression Clinical Impression: Muscle strain, Epigastric abdominal pain, Acute anemia - Patient ED Disposition Is Patient to be Admitted: Yes - Disposition Referrals: Natanael Burr MD, PhD [Staff Provider] - Disposition Time: 15:05 Condition: FAIR Additional Instructions: JACKELYN ARAGON, thank you for letting us take care of you today. Your provider was Herbie Petit MD and you were treated for CHEST PAIN. The emergency medical care you received today was directed at your acute symptoms. If you were prescribed any medication, please fill it and take as directed. It may take several days for your symptoms to resolve. Return to the Emergency Department if your symptoms worsen, do not improve, or if you have any other problems. Please contact your doctor or call one of the physicians/clinics you have been referred to that are listed on the Patient Visit Information form that is included in your discharge packet. Bring any paperwork you were given at discharge with you along with any medications you are taking to your follow up visit. Our treatment cannot replace ongoing medical care by a primary care provider outside of the emergency department. Thank you for allowing the [facility] team to be part of your care today. Follow up with PMD in 1 week. Follow up with GI specialist- referral given Discharged with Prescriptions for back muscle strain Prescriptions: Cyclobenzaprine [Flexeril] 5 mg PO HS 5 Days #5 tab Famotidine [Pepcid] 40 mg PO DAILY 5 Days #5 tab Ibuprofen [Motrin] 600 mg PO Q6H 5 Days #20 tab Instructions: Dyspepsia, Muscle Strain (DC) Forms: [id number] (Turkmen) - Admit Certification Admit to Inpatient:: Admitted to private service under Dr. Lazo for acute anemia - POA Present On Arrival: None
[2018-08-20] MEDS ORDERED: Sodium Chloride 0.9% 1,000 ML IV SCH ×2 (10:30→18:00)
--- NOTE | 2018-08-20 10:56 | US ---
Date of service: 08/20/2018 HISTORY: RUQ pain COMPARISON: None. TECHNIQUE: Grayscale imaging was performed. FINDINGS: LIVER: Measures 15.5 cm in length. There is diffuse increased echogenicity of the liver parenchyma. No mass. No intrahepatic bile duct dilatation. GALLBLADDER: There are no gallstones, wall thickening or pericholecystic fluid. The sonographic Barrios's sign is negative. COMMON BILE DUCT: Measures 1.4 mm. No stones. No dilatation. PANCREAS: Unremarkable as visualized. No mass. No ductal dilatation. RIGHT KIDNEY: Measures 10.6 cm in length. Normal echogenicity. No calculus, mass, or hydronephrosis. AORTA: No aneurysmal dilatation. IVC: Unremarkable. OTHER FINDINGS: None . IMPRESSION: No cholelithiasis or biliary dilatation. Fatty liver.
[2018-08-20 11:29] LABS: BASO # 0.1 K/uL (0.0-0.2); BASO % 0.9 % (0.0-2.0); EOS # 0.1 K/uL (0.0-0.7); EOS % 0.7 % (0.0-4.0); HEMOGLOBIN 9.1 g/dL (12.0-16.0); LYMPH # 1.1 K/uL (1.0-4.3); LYMPH % 13.8 % (20.0-40.0); MEAN CELL VOLUME 70.9 fl (81.0-99.0); MEAN CORPUSCULAR HEMOGLOBIN 21.3 pg (27.0-31.0); MEAN CORPUSCULAR HGB CONC 30.1 g/dL (33.0-37.0); MEAN PLATELET VOLUME 8.8 fl (7.2-11.7); MONO # 0.5 K/uL (0.0-0.8); MONO % 5.8 % (0.0-10.0); NEUT # 6.6 K/uL (1.8-7.0); NEUT % 78.8 % (50.0-75.0); RBC 4.28 Mil/uL (3.80-5.20); RED CELL DISTRIBUTION WIDTH 25.2 % (11.5-14.5); WHITE BLOOD COUNT 8.3 K/uL (4.8-10.8)
[2018-08-20 11:31] LABS: ALB/GLOB RATIO 1.3 (1.0-2.1); ALBUMIN 5.1 g/dL (3.5-5.0); ALT/SGPT 23 U/L (9-52); AST/SGOT 39 U/L (14-36); BLOOD UREA NITROGEN 8 mg/dl (7-17); CALCIUM 9.7 mg/dL (8.4-10.2); GFR NON-AFRICAN AMERICAN > 60
[2018-08-20] MEDS: Sodium Chloride 0.9% 1,000 ML IV SCH ×2 (14:02→16:14)
[2018-08-20 14:36] LABS: HEMOGLOBIN 7.8 g/dL (12.0-16.0); MEAN CELL VOLUME 71.3 fl (81.0-99.0); MEAN CORPUSCULAR HEMOGLOBIN 21.3 pg (27.0-31.0); MEAN CORPUSCULAR HGB CONC 29.8 g/dL (33.0-37.0); RBC 3.67 Mil/uL (3.80-5.20); RED CELL DISTRIBUTION WIDTH 25.8 % (11.5-14.5); WHITE BLOOD COUNT 8.4 K/uL (4.8-10.8)
[2018-08-20] MEDS ORDERED: Iodixanol 320 MG/ML 100 ML BOTTLE IV ONE ×2 (14:37→15:47)
[2018-08-20] MEDS ORDERED: Sodium Chloride 0.9% 50 ML IV ONE ×2 (14:37→15:48)
[2018-08-20] MEDS ORDERED: Alum-Mag Hydrox-Simethicone Susp (30 mL) PO ONE (15:01)
[2018-08-20] MEDS ORDERED: Potassium Chloride 20 mEq ER Tab PO ONE ×2 (15:04→16:21)
--- NOTE | 2018-08-20 15:40 | CP.PCM.HP ---
<Jami Michel - Last Filed: 08/20/18 15:54> History of Present Illness - History of Present Illness History of Present Illness: This is 22 y/o F with PMH of chronic Anemia, Menorrhagia and occasional heart messina admitted to [facility] for evaluation and treatment of acute on chronic anemia. Patient presented to ER for 1 week hx of severe right shoulder pain radiating to the right chest and RUQ. Pain is 10/10, sharp, intermittent, pain gets better somewhat with Ibuprofen 200mg, gets worse with movements. Pain associated with 1 episode of NBNB vomitus this morning and decreased appetite for 1 week duration. Reports constipation of 2 days. States she traveled 07/25/2018 to [facility]. Denies left sided chest pain, dyspnea on exertion, calf pain, diarrhea, dysuria, frequency, urgency, pain associated with food intake, cough or recent illness, and sick contacts. LMP: 08/05/18. PMD: Dr. Ellsworth LMP: 08/05/18, last for 1 week, heavy bleeding PMH: chronic Anemia, Menorrhagia and occasional heart messina PSH: Denies Allg: NKDA Meds: Occasional NSAIDs FH: Denies any bleeding problems, grandmom with ovarian cancer SH: + Alcohol use in weekends, denies any ROS: as per HPI Present on Admission - Present on Admission Any Indicators Present on Admission: No Review of Systems - Constitutional Constitutional: absent: Fatigue, Fever, Headache, Lethargy, Night Sweats, Weight Gain, Weakness - EENT Eyes: absent: Blurred Vision, Change in Vision, Discharge, Dry Eye Ears: absent: Disequilibrium, Dizziness Nose/Mouth/Throat: absent: Nasal Congestion, Nasal Trauma - Breasts Breasts: absent: Skin Changes - Cardiovascular Cardiovascular: absent: Chest Pain, Chest Pain at Rest - Respiratory Respiratory: absent: Cough, Dyspnea, Hemoptysis, Dyspnea on Exertion - Gastrointestinal Gastrointestinal: Nausea, Vomiting. absent: Abdominal Pain, Diarrhea - Genitourinary Genitourinary: absent: Change in Urinary Stream, Dysuria - Reproductive: Female Reproductive:Female: absent: Currently Menstual Past Patient History - Past Social History Smoking Status: Never Smoked - CARDIAC Hx Cardiac Disorders: No - PULMONARY Hx Bronchitis: Yes - PSYCHIATRIC Hx Psychophysiologic Disorder: No Hx Substance Use: No - SURGICAL HISTORY Hx Surgeries: No - ANESTHESIA Hx Anesthesia: No Meds Allergies/Adverse Reactions: Allergies Allergy/AdvReac Type Severity Reaction Status Date / Time No Known Allergies Allergy Verified 08/20/18 09:44 Physical Exam - Constitutional Appears: Well - Head Exam Head Exam: ATRAUMATIC, NORMAL INSPECTION, NORMOCEPHALIC - Eye Exam Eye Exam: EOMI, Normal appearance, PERRL Pupil Exam: NORMAL ACCOMODATION - ENT Exam ENT Exam: Mucous Membranes Moist, Normal Exam - Neck Exam Neck exam: Positive for: Normal Inspection - Respiratory Exam Respiratory Exam: Clear to Auscultation Bilateral, NORMAL BREATHING PATTERN. absent: Accessory Muscle Use, Chest Wall Tenderness, Decreased Breath Sounds, Rhonchi, Wheezes, Respiratory Distress - Cardiovascular Exam Cardiovascular Exam: REGULAR RHYTHM, +S1, +S2 - GI/Abdominal Exam GI & Abdominal Exam: Normal Bowel Sounds, Soft, Tenderness (RUQ and Epigastric ). absent: Guarding, Rebound - Rectal Exam Rectal Exam: NORMAL INSPECTION (No stool in rectal vault with NESHA) - Extremities Exam Extremities exam: Positive for: full ROM, normal capillary refill, normal inspection. Negative for: pedal edema, tenderness - Back Exam Back exam: NORMAL INSPECTION. absent: CVA tenderness (L), CVA tenderness (R) - Neurological Exam Neurological exam: Alert, CN II-XII Intact, Normal Gait, Oriented x3, Reflexes Normal - Psychiatric Exam Psychiatric exam: Normal Affect - Skin Skin Exam: Dry, Intact, Normal Color, Warm Results - Vital Signs Recent Vital Signs: Last Vital Signs Temp 97.7 F 08/20/18 09:31 Pulse 89 08/20/18 09:31 Resp 18 08/20/18 09:31 BP 133/82 08/20/18 09:31 Pulse Ox 100 08/20/18 15:06 - Labs Result Diagrams: 08/20/18 14:29 08/20/18 11:07 Labs: Laboratory Results - last 24 hr 08/20/18 08/20/18 08/20/18 11:07 11:07 14:29 WBC 8.3 8.4 RBC 4.28 3.67 L Hgb 9.1 L 7.8 L Hct 30.4 L 26.2 L MCV 70.9 L 71.3 L MCH 21.3 L 21.3 L MCHC 30.1 L 29.8 L RDW 25.2 H 25.8 H Plt Count 170 162 MPV 8.8 Neut % (Auto) 78.8 H Lymph % (Auto) 13.8 L [place] % (Auto) 5.8 Eos % (Auto) 0.7 Baso % (Auto) 0.9 Neut # (Auto) 6.6 Lymph # (Auto) 1.1 [place] # (Auto) 0.5 Eos # (Auto) 0.1 Baso # (Auto) 0.1 Sodium 135 Potassium 3.5 L Chloride 98 Carbon Dioxide 26 Anion Gap 15 BUN 8 Creatinine 0.5 L Est GFR ( Amer) > 60 Est GFR (Non-Af Amer) > 60 Random Glucose 101 Calcium 9.7 Total Bilirubin 0.5 AST 39 H ALT 23 Alkaline Phosphatase 57 Total Protein 9.0 H Albumin 5.1 H Globulin 3.9 Albumin/Globulin Ratio 1.3 Assessment & Plan - Assessment and Plan (Free Text) Assessment: A/P: 22 y/o F with PMH of chronic Anemia, Menorrhagia and occasional heart messina admitted to [facility] for evaluation and treatment of acute on chronic anemia. Acute Anemia, unknown etiology - Asymptomatic - No current menstural cycle - HgB Dropped from 9.1 ti 7.8 in 4 hours after 1L of bolus - C/w IVF, 2 IVs - Consented for possible blood transfusion if HgB < 7 - Consult GI, f/u recommendations Intermittent tachycardia in ER - CT chest to r/o PE, Follow up the result DVT PPX - SCD for now Case discussed with Dr. Lazo <Nazario Lazo - Last Filed: 08/22/18 08:52> Results - Vital Signs Recent Vital Signs: Last Vital Signs Temp 97.8 F 08/22/18 08:03 Pulse 86 08/22/18 08:03 Resp 22 08/22/18 08:03 BP 118/80 08/22/18 08:03 Pulse Ox 99 08/22/18 08:03 - Labs Result Diagrams: 08/22/18 04:40 08/21/18 04:45 Labs: Laboratory Results - last 24 hr 08/21/18 08/22/18 16:06 04:40 WBC 7.1 RBC 4.01 Hgb 8.6 L Hct 28.9 L MCV 72.0 L MCH 21.5 L MCHC 29.8 L RDW 26.4 H Plt Count 199 POC Glucose (mg/dL) 106 Assessment & Plan - Assessment and Plan (Free Text) Assessment: Patient was personally seen and examined by me in rounds with residents. Available labs and diagnostic data reviewed. Case, Patient's condition and management plan discussed with residents in rounds. Agree with resident's progress note. Plan: As ordered.
--- NOTE | 2018-08-20 15:54 | CARD ---
APPROVED REPORT Date of service: 08/20/2018 EKG Measurement Heart [id number] <Conclusion> Normal sinus rhythm with sinus arrhythmia Normal ECG
[2018-08-20] MEDS ORDERED: Sodium Chloride 0.9% 2,000 ML IV SCH (16:00)
[2018-08-20] MEDS ORDERED: Alum-Mag Hydrox-Simethicone Susp (30 mL) ONE (16:22)
--- NOTE | 2018-08-20 16:38 | CT ---
Date of service: 08/20/2018 PROCEDURE: CT Chest with contrast (Pulmonary Angiogram) HISTORY: Chest pain and tachycardia COMPARISON: None available. TECHNIQUE: Axial computed tomography images were obtained of the chest in the pulmonary arterial phase of enhancement. Coronal and sagittal reformatted images were created and reviewed. Intravenous contrast dose: 90 mL Visipaque 320 Radiation dose: Total exam DLP = 858.66 mGy-cm. This CT exam was performed using one or more of the following dose reduction techniques: Automated exposure control, adjustment of the mA and/or kV according to patient size, and/or use of iterative reconstruction technique. FINDINGS: Examination is of suboptimal diagnostic quality due to missed bolus. Intravenous contrast was injected in the right antecubital vein and there was leakage as documented by the technologist. PULMONARY ARTERIES: There are no large filling defects in the central pulmonary arteries to suggest acute pulmonary embolism. AORTA: No acute findings. No thoracic aortic aneurysm. No aortic atherosclerotic calcification or mural plaque present. LUNGS: The lungs are well inflated and clear. There is linear atelectasis in the right middle lobe. No nodule, mass or pulmonary consolidation. PLEURAL SPACES: No effusion or pneumothorax. HEART: No cardiomegaly. No significant pericardial effusion. LYMPH NODES: No pathologic mediastinal or hilar lymphadenopathy. BONES, CHEST WALL: Within normal limits for the patient's age. No fracture or destructive lesion OTHER FINDINGS: None. IMPRESSION: Suboptimal diagnostic quality for evaluation of pulmonary embolism due to missed bolus and leakage of contrast. Allowing for this, no CTA evidence for central acute pulmonary embolism. Linear atelectasis in the right middle lobe. No focal consolidation, pleural effusion or pneumothorax.
[2018-08-20 17:34] LABS: SQUAMOUS EPITHIAL 3 /hpf (0-5); URINE BACTERIA MANY (<OCC); URINE BILIRUBIN NEGATIVE (NEGATIVE); URINE BLOOD NEGATIVE (NEGATIVE); URINE CLARITY CLOUDY (Clear); URINE COLOR YELLOW (YELLOW); URINE GLUCOSE (UA) NEG (NEGATIVE); URINE LEUKOCYTE ESTERASE NEG Leu/uL (Negative); URINE PROTEIN 100 mg/dL (NEGATIVE); URINE UROBILINOGEN 0.2-1.0 mg/dL (0.2-1.0)
[2018-08-20 17:56] LABS: BARBITURATES, UR NEGATIVE (NEGATIVE); BENZODIAZEPINES, UR NEGATIVE (NEGATIVE); OPIATES, UR NEGATIVE (NEGATIVE); PHENCYCLIDINE, UR NEGATIVE (NEGATIVE)
[2018-08-20] MEDS: Lactated Ringer's 1,000 ML IV SCH (18:50)
[2018-08-20 21:42] LABS: HEMOGLOBIN 7.5 g/dL (12.0-16.0); MEAN CELL VOLUME 71.4 fl (81.0-99.0); MEAN CORPUSCULAR HEMOGLOBIN 21.1 pg (27.0-31.0); MEAN CORPUSCULAR HGB CONC 29.5 g/dL (33.0-37.0); RBC 3.57 Mil/uL (3.80-5.20); RED CELL DISTRIBUTION WIDTH 25.8 % (11.5-14.5); WHITE BLOOD COUNT 8.9 K/uL (4.8-10.8)
[2018-08-20 21:49] LABS: IRON 21 ug/dL (37-170)
[2018-08-20 21:59] LABS: % IRON SATURATION 5 % (20-55); TOTAL IRON BINDING CAPACITY 455 ug/dL (250-450)
[2018-08-21] MEDS: Lactated Ringer's 1,000 ML IV SCH ×4 (01:23→23:57)
[2018-08-21 05:34] LABS: HEMOGLOBIN 7.9 g/dL (12.0-16.0); MEAN CELL VOLUME 72.2 fl (81.0-99.0); MEAN CORPUSCULAR HEMOGLOBIN 21.1 pg (27.0-31.0); MEAN CORPUSCULAR HGB CONC 29.3 g/dL (33.0-37.0); RBC 3.73 Mil/uL (3.80-5.20); RED CELL DISTRIBUTION WIDTH 25.3 % (11.5-14.5); WHITE BLOOD COUNT 9.4 K/uL (4.8-10.8)
[2018-08-21 05:36] VITALS: O2SAT 99
[2018-08-21 05:44] LABS: ALB/GLOB RATIO 1.3 (1.0-2.1); ALBUMIN 4.2 g/dL (3.5-5.0); ALT/SGPT 23 U/L (9-52); AST/SGOT 32 U/L (14-36); BLOOD UREA NITROGEN 3 mg/dl (7-17); GFR NON-AFRICAN AMERICAN > 60; LIPASE 608 U/L (23-300)
--- NOTE | 2018-08-21 07:55 | CP.PCM.PN ---
<Aniyah Araujo - Last Filed: 08/21/18 10:30> Subjective - Date & Time of Evaluation Date of Evaluation: 08/21/18 Time of Evaluation: 07:54 - Subjective Subjective: patient seen and examined this morning with Dr Lazo Reports feeling better, no acute overnight events tolerating PO w/o difficulty Objective - Vital Signs/Intake and Output Vital Signs (last 24 hours): Temp Pulse Resp BP Pulse Ox 98.1 F 93 H 18 153/92 H 99 08/21/18 07:48 08/21/18 07:48 08/21/18 07:48 08/21/18 07:48 08/21/18 07:48 Intake and Output: 08/21/18 08/21/18 06:59 18:59 Intake Total 1800 Balance 1800 - Medications Medications: Current Medications Acetaminophen (Tylenol 325mg Tab) 650 mg PO Q4 PRN PRN Reason: Fever >100.4 F Acetaminophen (Tylenol 325mg Tab) 650 mg PO Q6 PRN PRN Reason: Pain, Mild (1-3) Last Admin: 08/20/18 16:22 Dose: 650 mg Famotidine (Pepcid) 20 mg IVP DAILY [facility] Lactated Ringer's (Lactated Ringer's) 1,000 mls @ 150 mls/hr IV .Q6H40M [facility] Last Admin: 08/21/18 01:23 Dose: 150 mls/hr Morphine Sulfate (Morphine) 2 mg IVP Q6 PRN PRN Reason: Pain, severe (8-10) Last Admin: 08/21/18 01:22 Dose: 2 mg Morphine Sulfate (Morphine) 1 mg IVP Q6 PRN PRN Reason: Pain, moderate (4-7) Last Admin: 08/20/18 23:09 Dose: 1 mg Ondansetron HCl (Zofran Inj) 4 mg IVP Q6 PRN PRN Reason: Nausea/Vomiting - Labs Labs: 08/21/18 04:45 08/21/18 04:45 - Constitutional Appears: No Acute Distress - Head Exam Head Exam: NORMAL INSPECTION - Eye Exam Eye Exam: EOMI, PERRL. absent: Nystagmus - ENT Exam ENT Exam: Mucous Membranes Moist - Neck Exam Neck Exam: Full ROM. absent: Lymphadenopathy, Tenderness, Thyromegaly - Respiratory Exam Respiratory Exam: Clear to Ausculation Bilateral, NORMAL BREATHING PATTERN. ab sent: Chest Wall Tenderness - Cardiovascular Exam Cardiovascular Exam: REGULAR RHYTHM, +S1, +S2. absent: Tachycardia, Murmur - GI/Abdominal Exam GI & Abdominal Exam: Soft, Normal Bowel Sounds. absent: Distended, Tenderness - Extremities Exam Extremities Exam: absent: Calf Tenderness, Pedal Edema - Neurological Exam Neurological Exam: Alert, Awake, CN II-XII Intact, Oriented x3 - Psychiatric Exam Psychiatric exam: Normal Mood - Skin Skin Exam: Dry, Warm. absent: Pallor Assessment and Plan - Assessment and Plan (Free Text) Assessment: 22 y/o F with PMH of chronic Anemia, Menorrhagia admitted for evaluation and treatment of acute on chronic anemia. Plan: Acute Anemia, unknown etiology - h/o heavy periods - Asymptomatic - No current menstural cycle - HgB 7.9 today - C/w IVF - Consented for possible blood transfusion if HgB < 7 - Consult GI, f/u recommendations - MEDICAL DELIVERY DRIVER consulted, recs appreciated - Heme/onc consulted Pancreatitis - lipase trending down - tolerating PO Intermittent tachycardia in ER - CTA chest: suboptimal study, no evidence of PE, consolidation, pleural effusion or pneumothorax. DVT PPX - SCD for now Case discussed with Dr. Lazo <Nazario Lazo - Last Filed: 08/23/18 15:24> Objective - Vital Signs/Intake and Output Vital Signs (last 24 hours): Temp Pulse Resp BP Pulse Ox 97.8 F 86 22 118/80 99 08/22/18 08:03 08/22/18 08:03 08/22/18 08:03 08/22/18 08:03 08/22/18 08:03 - Labs Labs: 08/22/18 04:40 08/21/18 04:45 Assessment and Plan - Assessment and Plan (Free Text) Assessment: Patient was personally seen and examined by me in rounds with residents. Available labs and diagnostic data reviewed. Case, Patient's condition and management plan discussed with residents in rounds. Agree with resident's progress note. Plan: As ordered.
--- NOTE | 2018-08-21 20:59 | CP.PCM.CON ---
History of Present Illness - History of Present Illness History of Present Illness: 22 year old female with no past medical history, presenting with back pain radiating to her chest, found to have pancreatitis and anemia. The patient notes to heavy periods and chronic anemia. She has taken iron pills in the past but has constipation when taking them. She does take NSAIDS at times for pain. She denies abnormal bruising. Past medical history: dysfunction uterine bleeding Past surgical history: Denies Family history: Grandmother ovarian cancer Social history: Alcohol on weekends Allergies: NKA Review of systems: All remaining review of systems including HEENT, cardiovascular, respiratory, gastrointestinal, genitourinary, musculoskeletal, dermatologic, neurologic, and psychiatric are negative unless mentioned in the HPI. Past Patient History - Past Medical History & Family History Past Medical History?: Yes - Past Social History Smoking Status: Never Smoked - CARDIAC Hx Cardiac Disorders: No - PULMONARY Hx Respiratory Disorders: Yes Hx Bronchitis: Yes - NEUROLOGICAL Hx Neurological Disorder: No - HEENT Hx HEENT Problems: No - RENAL Hx Chronic Kidney Disease: No - ENDOCRINE/METABOLIC Hx Endocrine Disorders: No - HEMATOLOGICAL/ONCOLOGICAL Hx Blood Disorders: Yes Hx Anemia: Yes (chronic anemia) Hx Blood Transfusions: No - INTEGUMENTARY Hx Dermatological Problems: No - MUSCULOSKELETAL/RHEUMATOLOGICAL Hx Musculoskeletal Disorders: No Hx Falls: No - GASTROINTESTINAL Hx Gastrointestinal Disorders: No - GENITOURINARY/GYNECOLOGICAL Hx Genitourinary Disorders: No - PSYCHIATRIC Hx Psychophysiologic Disorder: No Hx Substance Use: No - SURGICAL HISTORY Hx Surgeries: No - ANESTHESIA Hx Anesthesia: No Hx Anesthesia Reactions: No Hx Malignant Hyperthermia: No Has any member of the family had a problem w/ anesthesia?: No Meds Allergies/Adverse Reactions: Allergies Allergy/AdvReac Type Severity Reaction Status Date / Time No Known Allergies Allergy Verified 08/20/18 09:44 - Medications Medications: Current Medications Acetaminophen (Tylenol 325mg Tab) 650 mg PO Q4 PRN PRN Reason: Fever >100.4 F Acetaminophen (Tylenol 325mg Tab) 650 mg PO Q6 PRN PRN Reason: Pain, Mild (1-3) Last Admin: 08/20/18 16:22 Dose: 650 mg Famotidine (Pepcid) 20 mg IVP DAILY [facility] Last Admin: 08/21/18 08:15 Dose: 20 mg Lactated Ringer's (Lactated Ringer's) 1,000 mls @ 150 mls/hr IV .Q6H40M [facility] Last Admin: 08/21/18 16:51 Dose: 150 mls/hr Iron Sucrose 100 mg/ Sodium (Chloride) 105 mls @ 105 mls/hr IVPB DAILY [facility] Last Admin: 08/21/18 10:45 Dose: 105 mls/hr Morphine Sulfate (Morphine) 2 mg IVP Q6 PRN PRN Reason: Pain, severe (8-10) Last Admin: 08/21/18 08:25 Dose: 2 mg Morphine Sulfate (Morphine) 1 mg IVP Q6 PRN PRN Reason: Pain, moderate (4-7) Last Admin: 08/20/18 23:09 Dose: 1 mg Ondansetron HCl (Zofran Inj) 4 mg IVP Q6 PRN PRN Reason: Nausea/Vomiting Physical Exam - Head Exam Head Exam: ATRAUMATIC - Eye Exam Eye Exam: Normal appearance - ENT Exam ENT Exam: Mucous Membranes Dry - Respiratory Exam Respiratory Exam: NORMAL BREATHING PATTERN - Cardiovascular Exam Cardiovascular Exam: +S1, +S2 - GI/Abdominal Exam GI & Abdominal Exam: Normal Bowel Sounds - Extremities Exam Extremities exam: Positive for: normal inspection - Neurological Exam Neurological exam: Oriented x3 - Psychiatric Exam Psychiatric exam: Normal Affect, Normal Mood - Skin Skin Exam: Warm Results - Vital Signs Recent Vital Signs: Last Vital Signs Temp 98.4 F 08/21/18 19:54 Pulse 85 08/21/18 19:54 Resp 16 08/21/18 19:54 BP 129/85 08/21/18 19:54 Pulse Ox 99 08/21/18 19:54 - Labs Result Diagrams: 08/21/18 04:45 08/21/18 04:45 Labs: Laboratory Results - last 24 hr 08/20/18 08/20/18 08/21/18 21:30 21:30 04:45 WBC 8.9 9.4 RBC 3.57 L 3.73 L Hgb 7.5 L 7.9 L Hct 25.5 L 26.9 L MCV 71.4 L 72.2 L MCH 21.1 L 21.1 L MCHC 29.5 L 29.3 L RDW 25.8 H 25.3 H Plt Count 168 174 Sodium Potassium Chloride Carbon Dioxide Anion Gap BUN Creatinine Est GFR ( Amer) Est GFR (Non-Af Amer) POC Glucose (mg/dL) Random Glucose Calcium Iron 21 L TIBC 455 H % Saturation 5 L Total Bilirubin AST ALT Alkaline Phosphatase Total Protein Albumin Globulin Albumin/Globulin Ratio Lipase 08/21/18 08/21/18 04:45 16:06 WBC RBC Hgb Hct MCV MCH MCHC RDW Plt Count Sodium 136 Potassium 4.2 Chloride 101 Carbon Dioxide 28 Anion Gap 11 BUN 3 L Creatinine 0.4 L Est GFR ( Amer) > 60 Est GFR (Non-Af Amer) > 60 POC Glucose (mg/dL) 106 Random Glucose 94 Calcium 9.0 Iron TIBC % Saturation Total Bilirubin 0.4 AST 32 ALT 23 Alkaline Phosphatase 43 Total Protein 7.4 Albumin 4.2 Globulin 3.2 Albumin/Globulin Ratio 1.3 Lipase 608 H Assessment & Plan (1) Anemia Assessment and Plan: iron deficiency likely secondary to menorrhagia agree with SUPERVISOR BONDING evaluation IV iron Thank you for this interesting consult. Status: Acute
[2018-08-22 06:20] LABS: HEMOGLOBIN 8.6 g/dL (12.0-16.0); MEAN CORPUSCULAR HEMOGLOBIN 21.5 pg (27.0-31.0); MEAN CORPUSCULAR HGB CONC 29.8 g/dL (33.0-37.0); RBC 4.01 Mil/uL (3.80-5.20); RED CELL DISTRIBUTION WIDTH 26.4 % (11.5-14.5); WHITE BLOOD COUNT 7.1 K/uL (4.8-10.8)
--- NOTE | 2018-08-22 07:54 | CP.PCM.CON ---
History of Present Illness - History of Present Illness History of Present Illness: 22 y/o F with PMHx of chronic anemia, heavy menstrual periods(since age 10) presents to ED and admitted for chest and back pain. Ob-Tobacco Warehouse Manager consulted for H/O chronic anemia and H/O heavy menstrual periods. Patient reports her periods are heavy lasts for 7 days and associated with lower abdominal pain and cramping for which she takes Midol prn. Last US pelvis was done October 2017 which was unremarkable per patient. Was prescribed oral iron for 2 months by PCP. Does not have any Ob-Tobacco Warehouse Manager. Currently patient denies any vaginal bleeding, lower abdominal pain, cramping, vaginal discharge. Denies dizziness, headache, CP, SOB. Tobacco Warehouse Manager Hx: LMP 08/05/18, Lasted 1 week, No current active bleeding or cramping. Menarche age 10 PMHx: Chronic anemia PSHx: Denies Allergies: NKDA Meds: Midol PRN F/H: Father HTN, GF HTN, DM, Mother ovarian Ca age 42 Social: 3-4 drinks weekends x last 2 years, Denies smoking, illicit drugs Review of Systems - Genitourinary Genitourinary: absent: Change in Urinary Stream, Dysuria, Flank Pain - Reproductive: Female Reproductive:Female: Menses 1-7 Days, Heavy Menses, Dysmenorrhea Past Patient History - Past Medical History & Family History Past Medical History?: Yes - Past Social History Smoking Status: Never Smoked - CARDIAC Hx Cardiac Disorders: No - PULMONARY Hx Respiratory Disorders: Yes Hx Bronchitis: Yes - NEUROLOGICAL Hx Neurological Disorder: No - HEENT Hx HEENT Problems: No - RENAL Hx Chronic Kidney Disease: No - ENDOCRINE/METABOLIC Hx Endocrine Disorders: No - HEMATOLOGICAL/ONCOLOGICAL Hx Blood Disorders: Yes Hx Anemia: Yes (chronic anemia) Hx Blood Transfusions: No - INTEGUMENTARY Hx Dermatological Problems: No - MUSCULOSKELETAL/RHEUMATOLOGICAL Hx Musculoskeletal Disorders: No Hx Falls: No - GASTROINTESTINAL Hx Gastrointestinal Disorders: No - GENITOURINARY/GYNECOLOGICAL Hx Genitourinary Disorders: No - PSYCHIATRIC Hx Psychophysiologic Disorder: No Hx Substance Use: No - SURGICAL HISTORY Hx Surgeries: No - ANESTHESIA Hx Anesthesia: No Hx Anesthesia Reactions: No Hx Malignant Hyperthermia: No Has any member of the family had a problem w/ anesthesia?: No Meds Allergies/Adverse Reactions: Allergies Allergy/AdvReac Type Severity Reaction Status Date / Time No Known Allergies Allergy Verified 08/20/18 09:44 - Medications Medications: Current Medications Acetaminophen (Tylenol 325mg Tab) 650 mg PO Q4 PRN PRN Reason: Fever >100.4 F Acetaminophen (Tylenol 325mg Tab) 650 mg PO Q6 PRN PRN Reason: Pain, Mild (1-3) Last Admin: 08/20/18 16:22 Dose: 650 mg Famotidine (Pepcid) 20 mg IVP DAILY [facility] Last Admin: 08/21/18 08:15 Dose: 20 mg Lactated Ringer's (Lactated Ringer's) 1,000 mls @ 150 mls/hr IV .Q6H40M [facility] Last Admin: 08/21/18 23:57 Dose: 150 mls/hr Iron Sucrose 100 mg/ Sodium (Chloride) 105 mls @ 105 mls/hr IVPB DAILY [facility] Last Admin: 08/21/18 10:45 Dose: 105 mls/hr Morphine Sulfate (Morphine) 2 mg IVP Q6 PRN PRN Reason: Pain, severe (8-10) Last Admin: 08/21/18 23:56 Dose: 2 mg Morphine Sulfate (Morphine) 1 mg IVP Q6 PRN PRN Reason: Pain, moderate (4-7) Last Admin: 08/20/18 23:09 Dose: 1 mg Ondansetron HCl (Zofran Inj) 4 mg IVP Q6 PRN PRN Reason: Nausea/Vomiting Physical Exam - Constitutional Appears: Well, No Acute Distress - Head Exam Head Exam: ATRAUMATIC, NORMAL INSPECTION, NORMOCEPHALIC - Eye Exam Eye Exam: PERRL - Respiratory Exam Respiratory Exam: Clear to Auscultation Bilateral, NORMAL BREATHING PATTERN - Cardiovascular Exam Cardiovascular Exam: REGULAR RHYTHM, +S1, +S2 - Neurological Exam Neurological exam: Alert, Oriented x3 - Skin Skin Exam: Dry, Intact, Normal Color, Warm Results - Vital Signs Recent Vital Signs: Last Vital Signs Temp 98.1 F 08/22/18 05:15 Pulse 76 08/22/18 05:15 Resp 20 08/22/18 05:15 BP 139/92 H 08/22/18 05:15 Pulse Ox 99 08/22/18 05:15 - Labs Result Diagrams: 08/22/18 04:40 08/21/18 04:45 Labs: Laboratory Results - last 24 hr 08/21/18 08/22/18 16:06 04:40 WBC 7.1 RBC 4.01 Hgb 8.6 L Hct 28.9 L MCV 72.0 L MCH 21.5 L MCHC 29.8 L RDW 26.4 H Plt Count 199 POC Glucose (mg/dL) 106 Assessment & Plan - Assessment and Plan (Free Text) Assessment: 22 y/o F with PMHx of chronic anemia, heavy menstrual periods(since age 10) presents to ED and admitted for chest and back pain. Ob-Tobacco Warehouse Manager consulted for H/O chronic anemia and H/O heavy menstrual periods. Plan: Chronic abnormal uterine bleeding - No acute, active bleeding. - IV Iron/Oral iron for anemia per Flatbed Press Operator - Can be started on OCPs upon discharge or as an outpatient basis. - Patient stable from Tobacco Warehouse Manager standpoint - F/U with belt builder helper as an outpatient basis in 1-2 weeks Case discussed with Dr. Marcia Michel, PGY1
[2018-08-22 08:04] VITALS: BP 118/80; PULSE 86; RESP 22; TEMP 97.8
--- NOTE | 2018-08-22 11:37 | CP.PCM.DIS ---
Provider - Provider Date of Admission: 08/20/18 14:47 Attending physician: Nazario Lazo MD Consults: 08/20/18 15:50 Gastroenterology Consult Routine Comment: Consulting Provider: Natanael Burr Consulting Physician: Natanael Burr Reason for Consult: Anemia, Pancreatitis 08/21/18 07:55 Hematology Oncology Consult Routine Comment: Consulting Provider: Nain Quach Consulting Physician: Nain Quach Reason for Consult: anemia [employer] Consult Routine Comment: Consulting Provider: Armond Lacey Consulting Physician: Armond Lacey Reason for Consult: DUB, anemia Time Spent in preparation of Discharge (in minutes): 35 Diagnosis - Discharge Diagnosis (1) Epigastric abdominal pain Status: Acute (2) Chronic blood loss anemia Status: Chronic (3) Muscle strain Status: Resolved Hospital Course - Lab Results Lab Results: Most Recent Lab Values WBC 7.1 K/uL (4.8-10.8) 08/22/18 04:40 RBC 4.01 Mil/uL (3.80-5.20) 08/22/18 04:40 Hgb 8.6 g/dL (12.0-16.0) L 08/22/18 04:40 Hct 28.9 % (34.0-47.0) L 08/22/18 04:40 MCV 72.0 fl (81.0-99.0) L 08/22/18 04:40 MCH 21.5 pg (27.0-31.0) L 08/22/18 04:40 MCHC 29.8 g/dL (33.0-37.0) L 08/22/18 04:40 RDW 26.4 % (11.5-14.5) H 08/22/18 04:40 Plt Count 199 K/uL (130-400) 08/22/18 04:40 MPV 8.8 fl (7.2-11.7) 08/20/18 11:07 Neut % (Auto) 78.8 % (50.0-75.0) H 08/20/18 11:07 Lymph % (Auto) 13.8 % (20.0-40.0) L 08/20/18 11:07 [place] % (Auto) 5.8 % (0.0-10.0) 08/20/18 11:07 Eos % (Auto) 0.7 % (0.0-4.0) 08/20/18 11:07 Baso % (Auto) 0.9 % (0.0-2.0) 08/20/18 11:07 Neut # (Auto) 6.6 K/uL (1.8-7.0) 08/20/18 11:07 Lymph # (Auto) 1.1 K/uL (1.0-4.3) 08/20/18 11:07 [place] # (Auto) 0.5 K/uL (0.0-0.8) 08/20/18 11:07 Eos # (Auto) 0.1 K/uL (0.0-0.7) 08/20/18 11:07 Baso # (Auto) 0.1 K/uL (0.0-0.2) 08/20/18 11:07 Sodium 136 mmol/l (132-148) 08/21/18 04:45 Potassium 4.2 MMOL/L (3.6-5.0) 08/21/18 04:45 Chloride 101 mmol/L (98-107) 08/21/18 04:45 Carbon Dioxide 28 mmol/L (22-30) 08/21/18 04:45 Anion Gap 11 (10-20) 08/21/18 04:45 BUN 3 mg/dl (7-17) L 08/21/18 04:45 Creatinine 0.4 mg/dl (0.7-1.2) L 08/21/18 04:45 Est GFR ( Amer) > 60 08/21/18 04:45 Est GFR (Non-Af Amer) > 60 08/21/18 04:45 POC Glucose (mg/dL) 106 mg/dL (65-110) 08/21/18 16:06 Random Glucose 94 mg/dL (65-105) 08/21/18 04:45 Calcium 9.0 mg/dL (8.4-10.2) 08/21/18 04:45 Iron 21 ug/dL (37-170) L 08/20/18 21:30 TIBC 455 ug/dL (250-450) H 08/20/18 21:30 % Saturation 5 % (20-55) L 08/20/18 21:30 Ferritin 6.0 ng/Ml (6.24-137.0) L 08/20/18 16:45 Total Bilirubin 0.4 mg/dl (0.2-1.3) 08/21/18 04:45 AST 32 U/L (14-36) 08/21/18 04:45 ALT 23 U/L (9-52) 08/21/18 04:45 Alkaline Phosphatase 43 U/L (38-126) 08/21/18 04:45 Total Protein 7.4 G/DL (6.3-8.2) 08/21/18 04:45 Albumin 4.2 g/dL (3.5-5.0) 08/21/18 04:45 Globulin 3.2 gm/dL (2.2-3.9) 08/21/18 04:45 Albumin/Globulin Ratio 1.3 (1.0-2.1) 08/21/18 04:45 Triglycerides 133 mg/DL (0-149) 08/20/18 16:45 Cholesterol 208 mg/dL (0-199) H 08/20/18 16:45 LDL Cholesterol Direct 118 mg/dL (0-129) 08/20/18 16:45 HDL Cholesterol 77 MG/DL (30-70) H 08/20/18 16:45 Lipase 1120 U/L (23-300) H 08/22/18 08:55 Urine Color Yellow (YELLOW) 08/20/18 17:19 Urine Clarity Cloudy (Clear) 08/20/18 17:19 Urine pH 5.0 (5.0-8.0) 08/20/18 17:19 Ur Specific [place] 1.030 (1.003-1.030) 08/20/18 17:19 Urine Protein 100 mg/dL (NEGATIVE) 08/20/18 17:19 Urine Glucose (UA) Neg mg/dL (NEGATIVE) 08/20/18 17:19 Urine Ketones Trace mg/dL (NEGATIVE) 08/20/18 17:19 Urine Blood Negative (NEGATIVE) 08/20/18 17:19 Urine Nitrate Negative (NEGATIVE) 08/20/18 17:19 Urine Bilirubin Negative (NEGATIVE) 08/20/18 17:19 Urine Urobilinogen 0.2-1.0 mg/dL (0.2-1.0) 08/20/18 17:19 Ur Leukocyte Esterase Neg [place]/uL (Negative) 08/20/18 17:19 Urine RBC (Auto) 1 /hpf (0-3) 08/20/18 17:19 Urine Microscopic WBC 4 /hpf (0-5) 08/20/18 17:19 Ur Squamous Epith Cells 3 /hpf (0-5) 08/20/18 17:19 Urine Bacteria Many (<OCC) H 08/20/18 17:19 Hyaline Casts 3-5 /hpf (0-2) H 08/20/18 17:19 Urine Opiates Screen Negative (NEGATIVE) 08/20/18 17:19 Urine Methadone Screen Negative (NEGATIVE) 08/20/18 17:19 Ur Barbiturates Screen Negative (NEGATIVE) 08/20/18 17:19 Ur Phencyclidine Scrn Negative (NEGATIVE) 08/20/18 17:19 Ur Amphetamines Screen Negative (NEGATIVE) 08/20/18 17:19 U Benzodiazepines Scrn Negative (NEGATIVE) 08/20/18 17:19 U Oth Cocaine Metabols Negative (NEGATIVE) 08/20/18 17:19 U Cannabinoids Screen Negative (NEGATIVE) 08/20/18 17:19 - Hospital Course Hospital Course: 22 y/o F with PMH of chronic Anemia, Menorrhagia and occasional heart messina admitted to [facility] for evaluation and treatment of acute on chronic anemia and pancreatitis. Patient presented to ER for 1 week hx of severe right shoulder pain radiating to the right chest and RUQ. Pain is 10/10, sharp, intermittent. Pain associated with 1 episode of NBNB vomitus this morning and decreased appetite for 1 week duration. Hematology, [facility] and GI consulted, patient condition improved and was discharged home stable, with instructions to f/u with [facility] and PCP. Feosol TID. Discharge Exam - Head Exam Head Exam: NORMAL INSPECTION - Eye Exam Eye Exam: EOMI, Normal appearance, PERRL - ENT Exam ENT Exam: Mucous Membranes Moist - Neck Exam Neck exam: Full Rom - Respiratory Exam Respiratory Exam: Clear to PA & Lateral, NORMAL BREATHING PATTERN - Cardiovascular Exam Cardiovascular Exam: REGULAR RHYTHM, +S1, +S2. absent: Tachycardia - GI/Abdominal Exam GI & Abdominal Exam: Normal Bowel Sounds, Soft. absent: Distended, Tenderness - Neurological Exam Neurological exam: Alert, CN II-XII Intact, Oriented x3 - Psychiatric Exam Psychiatric exam: Normal Mood - Skin Skin Exam: Dry, Warm Discharge Plan - Discharge Medications Prescriptions: Ferrous Sulfate [Feosol] 325 mg PO TID 30 Days #90 tab - Follow Up Plan Condition: FAIR Disposition: HOME/ ROUTINE Instructions: Dyspepsia, Muscle Strain (DC), Anemia of Chronic Disease (DC) Additional Instructions: JACKELYN ARAGON, thank you for letting us take care of you today. Your provider was Herbie Petit MD and you were treated for CHEST PAIN. The emergency medical care you received today was directed at your acute symptoms. If you were prescribed any medication, please fill it and take as directed. It may take several days for your symptoms to resolve. Return to the Emergency Department if your symptoms worsen, do not improve, or if you have any other problems. Please contact your doctor or call one of the physicians/clinics you have been referred to that are listed on the Patient Visit Information form that is included in your discharge packet. Bring any paperwork you were given at discharge with you along with any medications you are taking to your follow up visit. Our treatment cannot replace ongoing medical care by a primary care provider outside of the emergency department. Thank you for allowing the [facility] team to be part of your care today. Follow up with PMD in 1 week. Follow up with GI specialist- referral given F/u with [facility] in 1-2 weeks Discharged with Prescriptions for back muscle strain Referrals: Nazario Lazo MD [Staff Provider] - Abdi Kennedy MD [Staff Provider] - Natanael Burr MD, PhD [Staff Provider] -
== END 2018-08-22 11:20 | disposition home or self-care (01) ==
LOC: H.ER 09:22 → H.ERHOLD 14:47 → MERGE 14:47 → H.TEL 17:51
PROVIDERS: ADMIT Internal Medicine; ATTEND Internal Medicine
DX: R10.13 Epigastric pain (principal); D50.0 Iron deficiency anemia secondary to blood loss (chronic); M25.511 Pain in right shoulder; R00.0 Tachycardia, unspecified
CPT/HCPCS: 36415; 71275; 76705; 80053; 80061; 81003; 81025; 82728; 82948; 83540; 83550; 83690; 85025; 85027; 93005; 96361; 96365; 96366; 96374; 96375; 96376; 99285; G0378; G0480; J1756; J2270; J7030; J7120; Q9967